=== PATIENT | female | born 1990 | race African-American/Black ===

== ENCOUNTER 2024-12-29 09:20 | Emergency (ER) | payer OTHER, SELFPAY ==
[2024-12-29 09:22] VITALS: BP 113/69; PULSE 111; RESP 20; TEMP 36.6; O2SAT 100
--- NOTE | 2024-12-29 12:42 | ED.GENADULT ---
HPI - General Adult General Chief complaint: Skin/Abscess/Foreign Body Stated complaint: pilonidal cyst Time Seen by Provider: 12/29/24 12:03 History of Present Illness HPI narrative: This is a 34-year-old female presenting with a cyst over her gluteal cleft. Patient says she has had these multiple times in the past they typically resolve without intervention. This 1 has lasted 5 days. She has had fevers of 101 at home. She denies nausea vomiting diarrhea. No involvement of the rectum rib pain on defecation. No urinary symptoms vaginal discharge. Related Data Allergies Allergy/AdvReac Type Severity Reaction Status Date / Time No Known Allergies Allergy Verified 12/29/24 11:54 Exam Narrative: APPEARANCE: No apparent distress. Head: atraumatic. EYES: EOMI, NOSE: Atraumatic NECK: Trachea midline RESPIRATORY: No increased rate of breathing CARDIOVASCULAR: RRR, ABDOMINAL: Non-distended MUSCULOSKELETAl: No obvious deformities NEURO: Alert. Moving 4/4 extremities SKIN: Patient has erythema and induration over the upper gluteal cleft. PSYCHIATRIC: Normal affect Course Vital Signs Vital signs: Vital Signs Temperature 97.8 F 12/29/24 09:22 Pulse Rate 111 H 12/29/24 09:22 Respiratory Rate 20 12/29/24 09:22 Blood Pressure 113/69 12/29/24 09:22 Pulse Oximetry 100 12/29/24 09:22 Oxygen Delivery Room Air 12/29/24 09:22 Temperature 97.8 F 12/29/24 09:22 Pulse Rate 103 H 12/29/24 13:00 Respiratory Rate 16 12/29/24 13:00 Blood Pressure 112/75 12/29/24 13:00 Pulse Oximetry 97 12/29/24 13:00 Oxygen Delivery Room Air 12/29/24 09:22 Procedures Abscess I/D back: Date of Incision: 12/29/24 Local Anesthetic: bupivacaine 0.25% Amount of anesthesia used (mL): 15 Technique: incised with #11 blade and probed loculations Amount of fluid expressed (mL): 20 Irrigation: Yes Packing used?: iodoform I&D Results: Pus and Blood Medical Decision Making MDM Narrative Medical decision making narrative: -Course: 34-year-old female presenting with a pilonidal cyst. It was incised and drained packed. She should follow up with primary care physician or a surgeon in 48 hours have packing removed for a wound check. Given follow-up for General surgery for recurrence. For discharged on Bactrim with pain medication please -DDX includes but is not limited to: Pilonidal cyst, cellulitis Vital Signs Vital Signs: Vital Signs Temperature 97.8 F 12/29/24 09:22 Pulse Rate 111 H 12/29/24 09:22 Respiratory Rate 20 12/29/24 09:22 Blood Pressure 113/69 12/29/24 09:22 Pulse Oximetry 100 12/29/24 09:22 Oxygen Delivery Room Air 12/29/24 09:22 Temperature 97.8 F 12/29/24 09:22 Pulse Rate 103 H 12/29/24 13:00 Respiratory Rate 16 12/29/24 13:00 Blood Pressure 112/75 12/29/24 13:00 Pulse Oximetry 97 12/29/24 13:00 Oxygen Delivery Room Air 12/29/24 09:22 Discharge Plan Discharge Clinical Impression: Infected pilonidal cyst Patient Disposition: Home, Self-Care Condition: Stable Instructions: Antibiotic Form, Pilonidal Cyst (ED) Additional Instructions: Please take the antibiotics as instructed. Use Motrin and Tylenol for pain control. Return fevers, increased pain or feel like your condition is getting worse. The packing should be removed in 48 hours by your primary care physician or general surgeon. If you cannot get in to see them you can return to the ED for a wound check. Patient Language: [place] Prescriptions: New acetaminophen 500 mg tablet 1,000 mg PO TID PRN (Reason: roman) 7 Days Qty: 42 0RF ibuprofen 800 mg tablet 800 mg PO TID PRN (Reason: pain) 7 Days Qty: 21 0RF sulfamethoxazole-trimethoprim 800-160 mg tablet 1 tablet PO Q12H Qty: 14 0RF Follow-up/Referrals: UNKNOWN,DOCTOR [Primary Care Provider] - Shaw Canales MD [Physician] - 2 Days (Pilonidal cyst. wound check)
[2024-12-29] MEDS: HYDROmorphone HCL INJ (*CRX) 1 MG/ML SYR IM (12:57)
[2024-12-29 13:00] VITALS: BP 112/75; PULSE 103; RESP 16; O2SAT 97
--- OUTSIDE RECORDS SUMMARY | 2024-12-29 13:22 | XMS_ITS | Clinical Summary ---
Author Organization [facility] Healthcare Address [address] [place] [address] Care Team Providers Care Storage Wharfage Clerk Name Role Phone No, Physician Primary Care Provider [phone] Matt Ludwig MD Unavailable [phone] Allergies No known active allergies Medications No known medications Active Problems Problem Noted Date Diagnosed Date Sterilization 05/03/2022 Overview (05/03/2022): Added automatically from request for surgery [id number] Surgical History Surgery Date Site/Laterality Comments SALPINGECTOMY 05/27/2023 Bilateral Medical History Medical History Date Comments Tooth missing Last menstrual period (LMP) > 10 days ago 04/15/23 No pertinent past medical history Family History Medical History Relation Name Comments Breast cancer Neg Hx Ovarian cancer Neg Hx Social History Tobacco Use Types Packs/Day Years Used Date Smoking Tobacco: Never Smokeless Tobacco: Never Tobacco Cessation:Counseling Given: Not Answered AUDIT-C Answer Date Recorded Q1: How often do you have a drink containing alcohol? Never 05/27/2023 Q2: How many drinks containi ng alcohol do you have on a typical day when you are drinking? Patient does not drink Frequency of Binge Drinking Not on file 05/02 Personal Safety Answer Date Recorded Have you ever been in or are you currently in a harmful physical or emotional relationship or is someone making you feel afraid or unsafe? Denies 05/27/2023 Comments No Sex and Gender Information Value Date Recorded Sex Assigned at Not on file Legal Sex Female 7:57 PM [employer]OLLEY CLE[employer] Gender Identity Not on file Sexual Orientation Not on file Obstetrics History Para Term AB IAB SAB Ectopic Multiple Livin g Live Births 2 2 Date Outcome GA Total Labor Labor/2nd/3rd Weight Sex Type Anes PTL Ada A1 A5 Name Clin Para Para Comments 11/19 Last Filed Vital Signs Vital Sign Reading Time Taken Comments Blood Pressure 104/68 06/09/2023 11:20 AM CDT Pulse 69 05/27/2023 7:00 PM CDT Temperature 36.4 ??C (97.5 ??F) 05/27/2023 5:35 PM CD T Respiratory Rate 20 05/27/2023 7:00 PM CDT Oxygen Saturation 100% 05/27/2023 7:00 PM CDT Inhaled Oxygen Concentration - - Weight 85.7 kg (189 lb) 06/09/2023 11:20 AM CDT Height 170.2 cm (5' 7.01 ) 06/09/2023 11:20 AM C DT Body Mass Index 29.59 06/09/2023 11:20 AM CDT Plan of Treatment Health Maintenance Due Date Last Done Comments Cervical Cancer Screening 1990 Depression Screening 1990 Hepatitis C Screening 1990 DTaP/Tdap/Td Vaccine (1 - Tdap) 2001 Varicella Vaccines (1 of 2 - 13+ 2-dose series) 2003 Hepatitis B Screening 2008 Regular Well Visit/Exam 18-64 2008 Influenza Vaccine (#1) 2024 HPV Vaccines Aged Out No longer eligi ble based on patient's age to complete this topic Pneumococcal vaccine <65 Aged Out No longer eligible based on patient's age to complete this topic Insurance [facility] Care Teams Storage Wharfage Clerk Relationship Specialty Start Date End Date No, Physician PCP - General 04/01/22 Matt Ludwig MD [address] [facility] [place] [address] Consulting Physician Obstetrics and Gynecology 05/27/23
--- OUTSIDE RECORDS SUMMARY | 2024-12-29 13:22 | XMS_ITS | Clinical Summary ---
Author Organization [facility] Address [address] [place] [address]. [place] [address] [place] [address] Care Team Providers Care Controlled Area Checker Name Role Phone Wes Evangelista MD Primary Care Provider [phone] Allergies No known active allergies Medications naproxen 500 MG tablet Take 1 tablet (500 mg total) by mouth 2 (two) times daily with meals. 30 tablet 8 Active traMADol (ULTRAM) 50 MG tablet Take 1 tablet (50 mg total) by mouth every 6 (six) hours as needed for Pain. 10 tablet 8 Active meloxicam (MOBIC) 7.5 MG tablet Take 1 tablet (7.5 mg total) by mouth daily. 30 tablet 9 Active ondansetron 4 MG disintegrating tablet Take 1 tablet (4 mg total) by mouth every 8 (eight) hours as needed for Nausea. 10 tablet 9 Active Social History Tobacco Use Types Packs/Day Years Used Date Smoking Tobacco: Never Assessed Comments Unknown Sex and Gender Information Value Date Recorded Sex Assigned at Not on file Legal Sex Female 7:25 PM CDT Gender Identity Not on file Sexual Orientation Not on file Last Filed Vital Signs Vital Sign Reading Time Taken Comments Blood Pressure 90/53 01/24/2019 8:19 PM FILLER IN Pulse 71 01/24/2019 8:19 PM FILLER IN Temperature 36.7 ??C (98 ??F) 01/24/2019 5:42 PM FILLER IN Respiratory Rate 16 01/24/2019 8:19 PM FILLER IN Oxygen Saturation 98% 01/24/2019 8:19 PM FILLER IN Inhaled Oxygen Concentration - - Weight 85.3 kg (188 lb) 01/24/2019 5:42 PM FILLER IN Height 170.2 cm (5' 7 ) 01/24/2019 5:42 PM FILLER IN Body Mass Index 29.44 01/24/2019 5:42 PM FILLER IN Plan of Treatment Upcoming Encounters Date Type Department Care Team (Late st Contact Info) Description 02/01/2025 2:40 PM FILLER IN Office Visit [facility] Family [facility] [address] [place] [address] Wes Evangelista MD [address] [facility] [place] [address] Health Maintenance Due Date Last Done Comments Cervical Cancer Screening Pa p Smear (Age 30 to 64) Every 3 Years 1990 Annual Physical 1993 Hepatitis C 2008 DTaP, Tdap and Td Vaccines ( 1 - Tdap) 2009 Hepatitis B Vaccines (1 of 3 - 19+ 3-dose series) 2009 Cervical Cancer Screening Pa p with HPV Testing (Age 30 to 64) Every 5 Years 2020 Cervical Cancer Screening with HPV 2020 COVID-19 Vaccine (2023-2 5 season) 2024 Influenza Adult (#1) 2024 HPV Vaccines Aged Out No longer eligi ble based on patient's age to complete this topic Meningococcal B Vaccine Aged Out No l onger eligible based on patient's age to complete this topic Meningococcal Vaccine Aged Out No daysi nohelia eligible based on patient's age to complete this topic Pneumococcal Vaccine: Pediat rics (0 to 5 Years) and At-Risk Patients (6 to 64 Years) Aged Out No longer eligible b ased on patient's age to complete this topic RSV Immunizations Under 20 Months Aged Out No longer eligible based on patient's age to complete this topic Insurance [employer] Care Teams Controlled Area Checker Relationship Specialty Start Date End Date Wes Evangelista MD [address] [place] [phone] PCP - General FAMILY PRACTICE 12/27/24
--- OUTSIDE RECORDS SUMMARY | 2024-12-29 13:22 | XMS_ITS | Referral Summary ---
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 [id number] [facility] Care Teams Button Tacker Relationship Specialty Start Date End Date No, Physician PCP - General 04/01/22 Matt Ludwig MD [address] [facility] [address] [place] [address] [place] [id number] Consulting Physician Obstetrics and Gynecology 05/27/23
--- NOTE | 2024-12-29 15:34 | PC.NURSE ---
Meds not administered. Pt. states her pain is only a 3/10 and she will waste picker antibiotic from pharmacy after leaving [place] and complete the entirety of antibiotic. Pt. is also going to eat food prior to taking antibiotic.
[2024-12-29 15:36] VITALS: BP 109/68; PULSE 98; RESP 16; O2SAT 95
== END 2024-12-29 15:39 | disposition home or self-care (01) ==
PROVIDERS: Emergency Provider Emergency Medicine
DX: L05.91 Pilonidal cyst without abscess (principal)
CPT/HCPCS: 10080; 99283; J1171